=== PATIENT | male | born 1955 | race Caucasian/White ===

== ENCOUNTER 2018-05-19 05:41 | Emergency (ER) | payer OTHER ==
[~2018-05-19] VITALS: Ht 180.3 cm; Wt 117.9 kg
[2018-05-19 05:50] VITALS: BP 158/95
[2018-05-19] MEDS ORDERED: AMOXICILLIN250 M3 PO (06:03)
--- NOTE | 2018-05-19 06:03 | ED HAND/WRIST INJURY COMPLAINT ---
History of Present Illness General Chief Complaint: Hand or Wrist Injury Stated Complaint: "UM I HAD SOMETHING ON MY FINGER" LEFT RING FINGER Source: patient, old records Exam Limitations: no limitations Vital Signs & Intake/Output Vital Signs & Intake/Output Vital Signs Date Time Temp Pulse Resp B/P B/P Pulse O2 O2 Flow FiO2 Mean Ox Delivery Rate 05/19 0550 98.1 83 20 158/95 96 Room Air Allergies Coded Allergies: NO KNOWN ALLERGIES (10/01/11) Reconcile Medications Amoxicillin 250 MG CAPSULE 1 CAP PO TID CELLULITIS Triage Note: PT HERE WITH C/O LEFT RINGER FINGER PAINFUL AND SWOLLEN. PT REPORTS THAT ON FRIDAY HE NOTICED A ?BITE OR PIN PRICK TO AREA THAT WAS SLIGHTLY ITCHY. PT REPORTS HE CLEANED AREA NAD APPLIED BACITRACIN TO IT AND KEPT IT COVERED. PT REPORTS THAT YESTERDAY HE NOTICED IT BECAME MORE SWOLLEN AND A RED LINE GOING UP THE HAND AND ARM. PT DENIES FEVERS/CHILLS. Triage Nurses Notes Reviewed? yes HPI: 2 days ago patient noticed a small cut on the fourth finger of his left hand. Since then the finger has been swollen and red and warm to the touch. This morning the swelling was worse. There are no fevers or chills. There is no extension of redness into his hand. He has no other complaints. Past History Travel History Traveled to [place] past 21 day No Medical History Any Pertinent Medical History? see below for history Cardiovascular: hypertension Surgical History Surgical History: non-contributory Psychosocial History What is your primary language Upper Sorbian Tobacco Use: Never used ETOH Use: denies use Illicit Drug Use: denies illicit drug use Family History Hx Contributory? No Review of Systems Review of Systems Constitutional: Reports: no symptoms. Respiratory: Reports: no symptoms. Cardiovascular: Reports: no symptoms. GI: Reports: no symptoms. Musculoskeletal: Reports: see HPI. Neurological/Psychological: Reports: no symptoms. Immunologic/Allergic: Reports: no symptoms. Physical Exam Physical Exam General Appearance: well developed/nourished, alert, awake, mild distress Head: atraumatic Neck: normal inspection, supple, full range of motion Hand Left: swelling, 4th finger Hand Right: normal inspection, normal range of motion Lymphatic: NO AXILLARYADENOPATHY Progress Differential Diagnosis: cellulitis Plan of Care: Current Medications Sig/Micah Start time Last Medication Dose Stop Time Status Admin Ceftriaxone Sodium 1,000 MG ONCE ONE 07/10 0615 UNVr (Rocephin) 05/19 616 Departure Departure Disposition: HOME OR SELF CARE Condition: Stable Clinical Impression Primary Impression: Cellulitis and abscess of finger, unspecified Referrals: Aylin W[place],Colleen Morelos (PCP/Family) Additional Instructions: TAKE AMOXIL PRESCRIBED RETURN IN 2 DAYS FOR A RE-CHECK OR SOONER FOR ANY CONCERNS Departure Forms: Customer Survey General Discharge Information Prescriptions: Current Visit Scripts Amoxicillin 1 CAP PO TID #30 CAP
[2018-05-21] MEDS ORDERED: CIPRO500 M1 PO (06:50)
== END 2018-05-19 06:17 ==
LOC: ERH 05:41
DX: L03.012 Cellulitis of left finger (principal)
CPT/HCPCS: 96374; J0696